=== PATIENT | male | born 1965 | race Caucasian/White ===

== ENCOUNTER → 2022-10-09 11:11 | Outpatient (BNVA) | payer OTHER, SELFPAY | PROVIDERS: PCP Internal Medicine; Visit Provider Nurse Practitioner Family | DX: Z13.89 Encounter for screening for other disorder (principal) ==

== ENCOUNTER 2022-11-20 12:29 | Outpatient (REF) | payer OTHER, SELFPAY ==
--- NOTE | ~2022-11-20 | MR_ITS ---
EXAMINATION: MR BRAIN WITHOUT CONTRAST CLINICAL INFORMATION: Tremor COMPARISON: None. TECHNIQUE: MRI of the brain was obtained using routine sequences without contrast. FINDINGS: Mildly motion degraded examination. No acute infarct. No acute intracranial hemorrhage or extra-axial fluid collection. Mild generalized parenchymal volume loss. Patchy T2 hyperintense foci in the subcortical and periventricular white matter are nonspecific but most suggestive of mild chronic microangiopathy. No mass lesion, mass effect, or herniation pattern. Normal intracranial arterial and dural venous sinus flow voids. Normal appearance of the midline structures. The orbits are grossly unremarkable. Trace ethmoid mucosal disease. The mastoid air cells are well aerated. Normal marrow signal. Asymmetric though nonpathologic size criteria right suboccipital lymph node. MR/MR head/brain wo con IMPRESSION: Mild generalized parenchymal volume loss and nonspecific white matter disease, likely mild chronic microangiopathy. No acute intracranial abnormality.
== END 2022-11-20 12:30 | disposition home or self-care (01) ==
LOC: HO.MRI 12:29
PROVIDERS: PCP Internal Medicine; Visit Provider Nurse Practitioner Family
DX: G47.50 Parasomnia, unspecified (principal); R20.2 Paresthesia of skin; R25.1 Tremor, unspecified; R26.9 Unspecified abnormalities of gait and mobility
CPT/HCPCS: 70551

== ENCOUNTER 2022-12-16 09:38 | Outpatient (REF) | payer OTHER, SELFPAY ==
--- NOTE | 2022-12-16 08:45 | EMG_ITS ---
Please see scanned EMG / Nerve Conduction Report. MTDD
== END 2022-12-16 09:39 | disposition home or self-care (01) ==
LOC: HO.NEURO 09:38
PROVIDERS: PCP Internal Medicine; Visit Provider Psychiatry & Neurology Neurology
DX: R20.2 Paresthesia of skin (principal); R53.83 Other fatigue; E11.9 Type 2 diabetes mellitus without complications
CPT/HCPCS: 95885; 95913

== ENCOUNTER → 2022-12-25 14:18 | Outpatient (BNVA) | payer OTHER, SELFPAY | PROVIDERS: PCP Internal Medicine; Visit Provider Nurse Practitioner Family ==

== ENCOUNTER 2023-01-06 10:14 | Outpatient (REF) | payer OTHER, SELFPAY ==
--- NOTE | 2023-01-06 | EMG_ITS ---
Please see scanned EMG / Nerve Conduction Report. MTDD
== END 2023-01-06 10:15 | disposition home or self-care (01) ==
LOC: HO.NEURO 10:14
PROVIDERS: PCP Internal Medicine; Visit Provider Psychiatry & Neurology Neurology
DX: R20.2 Paresthesia of skin (principal); R53.83 Other fatigue; E11.9 Type 2 diabetes mellitus without complications
CPT/HCPCS: 95885; 95911

== ENCOUNTER 2023-02-16 10:47 | Outpatient (AMB) | payer OTHER, SELFPAY ==
[2023-02-16 11:08] VITALS: BMI 38.4
--- NOTE | 2023-02-16 11:08 | A.OFFVIS_ITS ---
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 States his left is worse than his right. States numbness started about 1.5 years ago and has increase at night time. States he has not tried bracing or injections. Seen with Neurologist who did an EMG and ref to Orthopedics. Hx of pulmonary embolism, triple bi pass in February 2022, DM & PAH. 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 He is here with his He has numbness in the median nerve distribution bilaterally, L>R. His symptoms are intermittent, but daily, worse at night. He has weakness and drops objects. He has multiple medical comorbidities, including Diabetes and pulmonary arterial hypertension. he has a Hx of pulmonary embolism and triple bypass surgery in 02/2022 [facility] Medical History Diabetes mellitus DVT (deep venous thrombosis) HLD (hyperlipidemia) Intermittent claudication Low back pain Pulmonary emboli Tubular adenoma of colon Surgical History History of surgery Hx of colonoscopy Family History Mother Diabetes mellitus, type II Kidney failure Father Lung cancer Social History (Updated 02/16/23 @ 11:15 by VICENTE Wright) Household Members: Spouse Alcohol intake: former Patient Tobacco Use Status: Former Tobacco user Quit Date: 2020 Tobacco use type: Cigar Current occupational status: unemployed 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 Review of Systems Const All systems reviewed & are unremarkable except as noted in HPI and below Physical Exam Vital Signs: BMI result Body Mass Index 38.4 Const General: cooperative, healthy appearing and no acute distress Orientation/consciousness: patient oriented x3 HEENT Head: Yes normocephalic and Yes atraumatic Eyes EOM: EOMs intact bilaterally Resp Effort & Inspection: normal respiratory effort and able to speak in complete sentences Cardio Jugular venous distension: no JVD Skin General skin exam: turgor normal Rashes: no rashes Neuro General: patient oriented x3 Extrem Other: Evaluation of Bilateral Upper Extremity: The patient is alert, oriented, and in no acute distress Neuro: Dense numbness in the median nerve distribution bilaterally Normal sensation in the ulnar nerve distribution bilaterally. No thenar or intrinsic wasting Weak but firing APB muscle belly and good finger cross He has dense numbness in the superficial radial nerve distribution of the left hand, extending into the forearm. This is likely from the cardiac bypass performed using the radial nerve from the left wrist Vascular: Cap refill brisk ROM: He can make a fist and extend all his digits Skin: No lacerations or abrasions. General: No Ecchymosis. No Erythema or evidence of infection. Nerve Conduction study: Severe right carpal tunnel syndrome Moderately severe left carpal tunnel syndrome Left lateral ante-brachial and radial nerve cutaneous damage. Dr. Rubio 12/16/22 Psych Appearance: grossly normal Affect: normal affect Attitude: cooperative Assessment & Plan Assessment & Plan (1) Bilateral carpal tunnel syndrome: Code(s): G56.03 - Carpal tunnel syndrome, bilateral upper limbs (2) Diabetes mellitus: Comment: type 2 Code(s): E11.9 - Type 2 diabetes mellitus without complications Plan Assessment & Plan: 1. Left Carpal tunnel syndrome , moderate-severe With dense numbness, worse at night Weak APB muscle belly firing This is his most symptomatic complaint today I educated him about this condition I discussed treatment options The patient would like to proceed with surgery The plan is to take the patient to the operating room sometime in the next few weeks for the following procedures: 1. Left carpal tunnel release, under local All of the preoperative paperwork including the consent was filled out today. All the patient's questions were answered. The patient understands that they will be contacted by our surgery aid soon to schedule this procedure He denies asthma, kidney issues He is a Diabetic, his most recent HgA1c was 6.6% He has a Hx of pulmonary embolism and triple bypass surgery in 02/2022. He currently has pulmonary arterial hypertension and is on Eliquis. He will need cardiac clearance prior to surgery 2. Right Carpal tunnel syndrome, severe With dense numbness, worse at night We can discuss treatment when he has recovered from his left hand surgery Scribed for Tequila Vega MD by Jonathan Padron, hospital medical biller, on 02/16/23 at 11:30 AM, EST. Coding Level of Care Code New Pt Level 4 (52745) Diagnoses Bilateral carpal tunnel syndrome G56.03 Diabetes mellitus E11.9
== END 2023-02-16 11:45 | disposition home or self-care (01) ==
PROVIDERS: PCP Internal Medicine; Visit Provider Orthopaedic Surgery
DX: G56.03 Carpal tunnel syndrome, bilateral upper limbs (principal)
CPT/HCPCS: 99204

== ENCOUNTER → 2023-02-16 10:47 | Outpatient (BNVA) | payer OTHER, SELFPAY | PROVIDERS: PCP Internal Medicine; Visit Provider Orthopaedic Surgery ==

== ENCOUNTER 2023-04-05 10:00 | Day surgery (SDC) | payer OTHER, SELFPAY ==
[2023-04-05 11:55] VITALS: BP 107/58; PULSE 72; RESP 16; TEMP 36.5; O2SAT 97; BMI 38.4
--- NOTE | 2023-04-05 13:12 | MHC.SHP ---
Pre-Procedural Eval Section A Date of Service: 04/05/23 Section B Chief Complaint: Carpal tunnel syndrome, left upper limb Allergies: Allergies Allergy/AdvReac Type Severity Reaction Status Date / Time No Known Allergies Allergy Verified 04/02/23 10:25 Plan I have reviewed the history and physical and performed a pertinent physical examination on my patient. No changes have occurred unless specified. Time Spent With Patient Time: Total time managing care of this patient today ____ minutes.
--- NOTE | 2023-04-05 13:13 | W.PM.OPN ---
Operative Note Operative Note Date of Service: 04/05/23 Narrative: Preop diagnosis: 1. left Carpal tunnel syndrome Postop diagnosis: same Procedure: 1. left Carpal tunnel release Surgeon: Tequila Vega MD Anesthesia: local block using 1% lidocaine with epinephrine Findings: Thickened transverse carpal ligament. EBL: Less than 5 mL Specimens: None Complications: None Disposition: Brought to recovery room in stable condition Plan: Follow-up for 10-14 days for wound check and suture removal Indications: The patient is 57 years old, with left carpal tunnel syndrome that has been unresponsive to nonoperative management. The risks and benefits of operative treatment including but not limited to risk of damage to blood vessels, nerves, tendons, infection, persistent pain, persistent symptoms, or possible need for additional surgery were discussed with the patient and the patient wishes to proceed with surgery. Procedure: Once consent was obtained a local block was performed using a combination of 1% lidocaine with epinephrine. The patient was then brought back to the operating suite and placed on the operative table in supine position. The left upper extremity was prepped and draped in a standard surgical fashion. Once assured that we had a good block, a 2.0 cm longitudinal incision was made centered over the carpal tunnel. The incision was made through the skin to the subcutaneous tissues using a #15 blade. Dissection was made down to the level of the transverse carpal ligament with care being taken to protect the palmar cutaneous nerve. Once the transverse carpal ligament was clearly visualized, a longitudinal incision was made in the transverse carpal ligament 1st using a #15 blade, then using tenotomy scissors under direct visualization. Care was taken to look for and protect the motor branch of the median nerve when seen in this area. Once satisfied with our carpal tunnel release the wound was copiously irrigated with normal saline and hemostasis was obtained with a brief period of local pressure. The skin edges were reapproximated with some 5.0 nylon suture material and a sterile dressing was applied. The patient appears to have tolerated the procedure well and with no complications. All digits were well vascularized at the conclusion of the case.
[2023-04-05 13:49] VITALS: BP 125/63; PULSE 73; RESP 17; O2SAT 95
== END 2023-04-05 13:45 | disposition home or self-care (01) ==
PROVIDERS: PCP Internal Medicine; Visit Provider Orthopaedic Surgery
PROC: (CPT 64721; principal; 2023-04-05 11:30)
DX: G56.02 Carpal tunnel syndrome, left upper limb (principal); R20.0 Anesthesia of skin; R20.2 Paresthesia of skin; E11.9 Type 2 diabetes mellitus without complications; E78.5 Hyperlipidemia, unspecified; Z86.711 Personal history of pulmonary embolism; Z86.718 Personal history of other venous thrombosis and embolism; Z79.01 Long term (current) use of anticoagulants; Z87.891 Personal history of nicotine dependence
CPT/HCPCS: 64721; J0171

== ENCOUNTER → 2023-04-05 10:00 | Outpatient (BNV) | payer OTHER, SELFPAY | PROVIDERS: PCP Internal Medicine; Visit Provider Orthopaedic Surgery | DX: G56.02 Carpal tunnel syndrome, left upper limb (principal) | CPT/HCPCS: 64721 ==

== ENCOUNTER 2023-04-14 11:18 | Outpatient (AMB) | payer OTHER, SELFPAY ==
--- NOTE | 2023-04-14 11:34 | MHC.OFFVIS ---
Intake Vital Signs 04/14/23 11:36 Height 5 ft 6 in Weight 239 lb BMI 38.6 BP 118/78 Blood Pressure Location Rt brachial Position Sitting Pulse 75 Pulse Source Pulse Oximeter Intake Visit Reasons: 3 mo f/u for dizziness-Confirmed Intake Note: follow up 3 months Patient states My dizzy spells are still presents Allergies No Known Allergies Allergy (Verified 04/02/23 10:25) HPI HPI Comments History of Present Illness Details 57-yr-old male presents for f/u visit, accompanied by his . Pt was started on Sildenafil to tx his pulmonary HTN s/s/- so far has not noticed a significant improvement. Has f/u in May. He did have the left carpal tunnel repair last week. Plans to do the right in the future. Pt had fall onto his side at the end of the January, thought he twisted his left knee. X-rays did not show any fracture. He did see ortho, who did brace the left knee- as he had left lateral knee fluid. He also had a cortisone injection 03/26/23 w/ [facility]- which did not seem to help much. He continues to have SOB, poor endurance, and fatigue. He is having episodes of lightheadedness/dizziness, especially when bending over and getting back up. He is still having difficulty with BUE fine motor skills, paresthesias. feels he is having a bit more episodes of brain fog, difficulty concentrating. He is still having episodes of his feet feel stuck to the floor- tapping his leg helps. His right foot is still shuffling. He is taking more in his sleep. Not kicking, punching, or leaving the bed. He notes his sleep is more fragmented. He is feeling like someone is watching him from behind or seeing shadows. [facility] Medical History (Updated 04/14/23 @ 12:27 by DAVID Bhakta) Hay fever Tubular adenoma of colon Pulmonary emboli Low back pain HLD (hyperlipidemia) DVT (deep venous thrombosis) Diabetes mellitus Intermittent claudication Surgical History (Updated 04/14/23 @ 11:38 by IVAN Haddad) History of carpal tunnel release History of surgery Hx of colonoscopy Family History Mother Diabetes mellitus, type II Kidney failure Father Lung cancer Social History Household Members: Spouse Alcohol intake: former Patient Tobacco Use Status: Former Tobacco user Quit Date: 2020 Tobacco use type: Cigar Current occupational status: unemployed 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 RLE- no rest tremor noted today. Decreased foot taps. Slow to stand, decreased arm swing, short steps w/ low floor clearance, more so on right. 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 It is likely that mild axonal sensory-motor neuropathy is r/t diabetes and CV health issues, however will check labs for other common etiologies of neuropathy. F/u w/ pulmonology as scheduled, F/u w/ orthopedics as scheduled. Monitor hallucinations- ? if exacerbated by recent left CTR and left knee cortisone inj. Consider trial of dopaminergic tx in f/u- possibly this cleo help gait, freezing. Pt is advised to abstain from work through f/u her in 4 months, as pt would be at increased risk for injury and falls d/t his work requirements. Goals and Barriers Lab Results Last Value Most Recent Orders: Orders LUDWIN Reflex Titer and Pattern Today G62.9 - Polyneuropathy, unspecified, R20.2 - Paresthesia of skin Protein Electrophoresis 24HrUr Today G62.9 - Polyneuropathy, unspecified, R20.2 - Paresthesia of skin TSH reflex Free T4 Today G62.9 - Polyneuropathy, unspecified, R20.2 - Paresthesia of skin Vitamin B12 and Folate Today G62.9 - Polyneuropathy, unspecified, R20.2 - Paresthesia of skin Ferritin Today G62.9 - Polyneuropathy, unspecified, R20.2 - Paresthesia of skin Homocysteine Today G62.9 - Polyneuropathy, unspecified, R20.2 - Paresthesia of skin Erythrocyte Sedimentation Rate Today G62.9 - Polyneuropathy, unspecified, R20.2 - Paresthesia of skin CRP High Sensitivity Today G62.9 - Polyneuropathy, unspecified, R20.2 - Paresthesia of skin Protein Electrophoresis, Serum Today G62.9 - Polyneuropathy, unspecified, R20.2 - Paresthesia of skin Comprehensive Met. Panel Today G62.9 - Polyneuropathy, unspecified, R20.2 - Paresthesia of skin Complete Blood Count Auto Diff Today G62.9 - Polyneuropathy, unspecified, R20.2 - Paresthesia of skin Methylmalonic Acid Today G62.9 - Polyneuropathy, unspecified, R20.2 - Paresthesia of skin Coding Level of Care Code Est Pt Level 4 (99941) Diagnoses Peripheral neuropathy G62.9
[2023-04-14 11:36] VITALS: BP 118/78; PULSE 75; BMI 38.6
== END 2023-04-14 12:45 | disposition home or self-care (01) ==
PROVIDERS: PCP Internal Medicine; Visit Provider Nurse Practitioner Family
DX: G62.9 Polyneuropathy, unspecified (principal)
CPT/HCPCS: 99214

== ENCOUNTER → 2023-04-14 11:18 | Outpatient (BNVA) | payer OTHER, SELFPAY | PROVIDERS: PCP Internal Medicine; Visit Provider Nurse Practitioner Family ==

== ENCOUNTER 2023-04-21 11:51 | Outpatient (AMB) | payer OTHER, SELFPAY ==
--- NOTE | 2023-04-21 12:04 | MHC.OFFVIS ---
Intake Vital Signs 04/21/23 12:10 Height 5 ft 6 in Weight 239 lb BMI 38.6 Intake Visit Reasons: PO LT CTR 04/05/23AR Intake Note: Darryn 57 yr old male presents today for his P/O visit for his left CTR from 04/05/[address] Vega. States he still has numbness and tingling but he was made aware of this before surgery due to having constant numbness. Allergies No Known Allergies Allergy (Verified 04/21/23 12:14) HPI PO LT CTR 04/05/23AR HPI Details Darryn is a 57 year old right hand dominant man who presents S/P left carpal tunnel release, DOS: 04/05/23. He has known right carpal tunnel syndrome. In regards to his left hand he says he still has numbness in the median nerve distribution. He had dense numbness prior to surgery and is aware that his sensation may not return. He says he continues to have numbness in his hand at night, but he says he is no longer waking up with pain. He has numbness in the superficial radial nerve distribution of the left hand, extending into the forearm. This is likely from the cardiac bypass performed using the radial nerve from the left wrist He continues to have dense numbness in the right median nerve distribution. He says he is being kept out of work until July, by his Neurologist. He is being evaluated for Parkinson's disease. [facility] Medical History (Updated 04/14/23 @ 12:27 by DAVID Bhakta) Hay fever Tubular adenoma of colon Pulmonary emboli Low back pain HLD (hyperlipidemia) DVT (deep venous thrombosis) Diabetes mellitus Intermittent claudication Surgical History (Updated 04/14/23 @ 11:38 by IVAN Haddad) History of carpal tunnel release History of surgery Hx of colonoscopy Family History Mother Diabetes mellitus, type II Kidney failure Father Lung cancer Social History (Reviewed 04/21/23 @ 12:14 by Maya Robison [facility]) Household Members: Spouse Alcohol intake: former Patient Tobacco Use Status: Former Tobacco user Quit Date: 2020 Tobacco use type: Cigar Current occupational status: unemployed 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 Sutures removed and Steri-Strips applied He can make a fist and extend all his digits In regards to his left hand sensation: He continues to have dense numbness in the median nerve distribution Normal sensation in the ulnar nerve distribution Mild thenar wasting, no intrinsic wasting Weak but firing APB muscle belly and good finger cross He has dense numbness in the superficial radial nerve distribution of the left hand, extending into the forearm. This is likely from the cardiac bypass performed using the radial nerve from the left wrist In regards to the right hand: Dense numbness in the median nerve distribution of the right hand Normal sensation in the ulnar nerve distribution of the right hand Fairly significant thenar wasting, no intrinsic wasting Very weak but firing APB muscle belly and good finger cross Cap refill is brisk Nerve Conduction study: Severe right carpal tunnel syndrome Moderately severe left carpal tunnel syndrome Left lateral ante-brachial and radial nerve cutaneous damage. Dr. Rubio 12/16/22 Psych Appearance: grossly normal Affect: normal affect Attitude: cooperative Assessment & Plan Assessment & Plan (1) Bilateral carpal tunnel syndrome: Code(s): G56.03 - Carpal tunnel syndrome, bilateral upper limbs (2) Diabetes mellitus: Comment: type 2 Code(s): E11.9 - Type 2 diabetes mellitus without complications Plan Assessment & Plan: 1. Left Carpal tunnel syndrome, S/P release DOS: 04/05/23 Pre-operatively with dense numbness, worse at night Now with dense numbness slightly improved nighttime symptoms Weak APB muscle belly firing, mild thenar wasting The patient appears to be doing well post-operatively I educated him about the post-operative course I explained the signs and symptoms of infection, if the patient develops any new or worsening erythema, drainage, pain, or warmth they should contact the clinic or attend the ED. I explained it can take up to 9 months post-operatively for his sensation to show any improvement I discussed activity modifications, he is to lift nothing heavier than a cellphone for the next two weeks He will perform gentle ROM exercises at home He should avoid any underwater activities for the next 5 days He should gently massage about the incision site to reduce the risk of hypersensitivity 2. Right Carpal tunnel syndrome, severe With dense numbness, worse at night Weak APB muscle belly firing Significant thenar wasting I educated him about this condition I discussed operative and non-operative treatment options The patient would like to proceed with surgery The risks and benefits of operative treatment were discussed with the patient and the patient wishes to proceed with surgery. These risks include, but are not limited to risk of damage to blood vessels, nerves, tendons, infection, recurrence, incomplete relief of preoperative symptoms, persistent pain, possible need for further surgery and the risks associated with regional blocks and anesthesia. The plan is to take the patient to the operating room sometime in the next few weeks for the following procedures: 1. Right carpal tunnel release, under local All of the preoperative paperwork including the consent was filled out today. All the patient's questions were answered. The patient understands that they will be contacted by our soda dry house operator soon to schedule this procedure He denies Diabetes, blood thinners, asthma, kidney issues He has a Hx of pulmonary embolism and triple bypass surgery in 02/2022. He currently has pulmonary arterial hypertension and is on Eliquis. He obtained cardiac clearance prior to his left carpal tunnel release and will not need new clearance Scribed for Tequila Vega MD by Jonathan Padron, medical device assembler, on 04/21/23 at 12:25 PM, EST. Coding Level of Care Code Global (13238) Diagnoses Bilateral carpal tunnel syndrome G56.03 Diabetes mellitus E11.9
[2023-04-21 12:10] VITALS: BMI 38.6
== END 2023-04-21 12:42 | disposition home or self-care (01) ==
PROVIDERS: PCP Internal Medicine; Visit Provider Orthopaedic Surgery
DX: G56.03 Carpal tunnel syndrome, bilateral upper limbs (principal); E11.9 Type 2 diabetes mellitus without complications
CPT/HCPCS: 99024

== ENCOUNTER → 2023-04-21 11:51 | Outpatient (BNVA) | payer OTHER, SELFPAY | PROVIDERS: PCP Internal Medicine; Visit Provider Orthopaedic Surgery ==

== ENCOUNTER 2023-04-26 09:59 | Day surgery (SDC) | payer OTHER, SELFPAY ==
[2023-04-26 10:54] VITALS: BP 140/68; PULSE 73; RESP 18; TEMP 36.8; O2SAT 95; BMI 38.6
--- NOTE | 2023-04-26 12:46 | MHC.SHP ---
Pre-Procedural Eval Section A Date of Service: 04/26/23 The patient is an INPATIENT: No Changes since office visit: No Cold of Flu in the past 2 weeks, No New Medical Problems, No Changes in Medication and No Patient answered all questions The History & Physical has been completed within 30 days and I have reviewed it.: Yes Section B Chief Complaint: Carpal tunnel syndrome, right upper limb Allergies: Allergies Allergy/AdvReac Type Severity Reaction Status Date / Time No Known Allergies Allergy Verified 04/21/23 12:14 Plan I have reviewed the history and physical and performed a pertinent physical examination on my patient. No changes have occurred unless specified. Time Spent With Patient Time: Total time managing care of this patient today ____ minutes.
--- NOTE | 2023-04-26 12:46 | W.PM.OPN ---
Operative Note Operative Note Date of Service: 04/26/23 Narrative: Preop diagnosis: 1. right Carpal tunnel syndrome Postop diagnosis: same Procedure: 1. right Carpal tunnel release Surgeon: Tequila Vega MD Anesthesia: local block using 1% lidocaine with epinephrine Findings: Thickened transverse carpal ligament. EBL: Less than 5 mL Specimens: None Complications: None Disposition: Brought to recovery room in stable condition Plan: Follow-up for 10-14 days for wound check and suture removal Indications: The patient is 57 years old, with right carpal tunnel syndrome that has been unresponsive to nonoperative management. The risks and benefits of operative treatment including but not limited to risk of damage to blood vessels, nerves, tendons, infection, persistent pain, persistent symptoms, or possible need for additional surgery were discussed with the patient and the patient wishes to proceed with surgery. Procedure: Once consent was obtained a local block was performed using a combination of 1% lidocaine with epinephrine. The patient was then brought back to the operating suite and placed on the operative table in supine position. The right upper extremity was prepped and draped in a standard surgical fashion. Once assured that we had a good block, a 2.0 cm longitudinal incision was made centered over the carpal tunnel. The incision was made through the skin to the subcutaneous tissues using a #15 blade. Dissection was made down to the level of the transverse carpal ligament with care being taken to protect the palmar cutaneous nerve. Once the transverse carpal ligament was clearly visualized, a longitudinal incision was made in the transverse carpal ligament 1st using a #15 blade, then using tenotomy scissors under direct visualization. Care was taken to look for and protect the motor branch of the median nerve when seen in this area. Once satisfied with our carpal tunnel release the wound was copiously irrigated with normal saline and hemostasis was obtained with a brief period of local pressure. The skin edges were reapproximated with some 5.0 nylon suture material and a sterile dressing was applied. The patient appears to have tolerated the procedure well and with no complications. All digits were well vascularized at the conclusion of the case.
[2023-04-26 14:08] VITALS: BP 105/63; PULSE 74; RESP 18; O2SAT 95
== END 2023-04-26 14:09 | disposition home or self-care (01) ==
PROVIDERS: PCP Internal Medicine; Visit Provider Orthopaedic Surgery
PROC: (CPT 64721; principal; 2023-04-26 11:20)
DX: G56.01 Carpal tunnel syndrome, right upper limb (principal); R20.0 Anesthesia of skin; R20.2 Paresthesia of skin; E11.9 Type 2 diabetes mellitus without complications; I27.0 Primary pulmonary hypertension; E78.5 Hyperlipidemia, unspecified; Z87.891 Personal history of nicotine dependence; J30.1 Allergic rhinitis due to pollen; Z86.718 Personal history of other venous thrombosis and embolism; Z86.711 Personal history of pulmonary embolism; Z79.01 Long term (current) use of anticoagulants; Z79.84 Long term (current) use of oral hypoglycemic drugs; Z98.890 Other specified postprocedural states
CPT/HCPCS: 64721; J0171

== ENCOUNTER → 2023-04-26 09:59 | Outpatient (BNV) | payer OTHER, SELFPAY | PROVIDERS: PCP Internal Medicine; Visit Provider Orthopaedic Surgery | DX: G56.01 Carpal tunnel syndrome, right upper limb (principal) | CPT/HCPCS: 64721 ==

== ENCOUNTER 2023-05-11 12:33 | Outpatient (AMB) | payer OTHER, SELFPAY ==
--- NOTE | 2023-05-11 12:46 | MHC.OFFVIS ---
Intake Vital Signs 05/11/23 12:54 Height 5 ft 6 in Weight 239 lb BMI 38.6 Intake Visit Reasons: PO-Rt CTR 04/26 Intake Note: Darryn 57 yr old male presents today for his P/O visit for his post op visit for his Right CTR 04/26/23. States numbness has improved slightly. Sutures removed and steri strips applied. Allergies No Known Allergies Allergy (Verified 05/11/23 12:54) HPI PO-Rt CTR 04/26 HPI Details Darryn is a 57 year old right hand dominant man who presents S/P right carpal tunnel release, DOS: 04/26/23. In regards to his right hand he says he still has numbness in the median nerve distribution, though this has improved slightly. He had dense numbness prior to surgery and is aware that his sensation may not return. He says he continues to have numbness in his hand at night, but he says he is no longer waking up with pain. He continues to have dense numbness in the left median nerve distribution, and numbness in the superficial radial nerve distribution of the left hand, extending into the forearm. This is likely from the cardiac bypass performed using the radial nerve from the left wrist He says he is being kept out of work until July, by his Neurologist. He is being evaluated for Parkinson's disease. [facility] Medical History (Updated 04/14/23 @ 12:27 by DAVID Bhakta) Hay fever Tubular adenoma of colon Pulmonary emboli Low back pain HLD (hyperlipidemia) DVT (deep venous thrombosis) Diabetes mellitus Intermittent claudication Surgical History (Updated 04/14/23 @ 11:38 by IVAN Haddad) History of carpal tunnel release History of surgery Hx of colonoscopy Family History Mother Diabetes mellitus, type II Kidney failure Father Lung cancer Social History Household Members: Spouse Alcohol intake: former Patient Tobacco Use Status: Former Tobacco user Quit Date: 2020 Tobacco use type: Cigar Current occupational status: unemployed 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 Sutures removed and Steri-Strips applied He can make a fist and extend all his digits In regards to his right hand sensation: He continues to have dense numbness in the median nerve distribution Normal sensation in the ulnar nerve distribution Fairly significant thenar wasting, no intrinsic wasting Very weak but firing APB muscle belly and good finger cross In regards to the left hand: Dense numbness in the median nerve distribution of the right hand Normal sensation in the ulnar nerve distribution of the right hand Mild thenar wasting, no intrinsic wasting Weak but firing APB muscle belly and good finger cross He has dense numbness in the superficial radial nerve distribution of the left hand, extending into the forearm. This is likely from the cardiac bypass performed using the radial nerve from the left wrist Cap refill is brisk Nerve Conduction study: Severe right carpal tunnel syndrome Moderately severe left carpal tunnel syndrome Left lateral ante-brachial and radial nerve cutaneous damage. Dr. Rubio 12/16/22 Psych Appearance: grossly normal Affect: normal affect Attitude: cooperative Assessment & Plan Assessment & Plan (1) Bilateral carpal tunnel syndrome: Code(s): G56.03 - Carpal tunnel syndrome, bilateral upper limbs (2) Diabetes mellitus: Comment: type 2 Code(s): E11.9 - Type 2 diabetes mellitus without complications Plan Assessment & Plan: 1. Right Carpal tunnel syndrome, severe Pre-operatively with dense numbness, worse at night Still with dense numbness post-operatively Weak APB muscle belly firing Significant thenar wasting The patient appears to be doing well post-operatively I educated him about the post-operative course I explained the signs and symptoms of infection, if the patient develops any new or worsening erythema, drainage, pain, or warmth they should contact the clinic or attend the ED. I discussed activity modifications, he is to lift nothing heavier than a cellphone for the next two weeks He will perform gentle ROM exercises at home He should avoid any underwater activities for the next 5 days He should gently massage about the incision site to reduce the risk of hypersensitivity He can follow up prn 2. Left Carpal tunnel syndrome, S/P release DOS: 04/05/23 Pre-operatively with dense numbness, worse at night Now with dense numbness slightly improved nighttime symptoms Weak APB muscle belly firing, mild thenar wasting Scribed for Tequila Vega MD by Jonathan Padron, medical unit secretary, on 05/11/23 at 1:25 PM, EST. Coding Level of Care Code Global (22385) Diagnoses Bilateral carpal tunnel syndrome G56.03 Diabetes mellitus E11.9
[2023-05-11 12:54] VITALS: BMI 38.6
== END 2023-05-11 13:30 | disposition home or self-care (01) ==
PROVIDERS: PCP Internal Medicine; Visit Provider Orthopaedic Surgery
DX: G56.03 Carpal tunnel syndrome, bilateral upper limbs (principal); E11.9 Type 2 diabetes mellitus without complications
CPT/HCPCS: 99024

== ENCOUNTER → 2023-05-11 12:33 | Outpatient (BNVA) | payer OTHER, SELFPAY | PROVIDERS: PCP Internal Medicine; Visit Provider Orthopaedic Surgery ==

== ENCOUNTER 2023-07-01 08:45 | Outpatient (REF) | payer OTHER, SELFPAY ==
[2023-07-01 09:21] LABS: MANUAL DIFF FLAG NO
[2023-07-01 10:02] LABS: Basophils Percent Auto 0.5 % (0-2); Eosinophils Absolute Auto 0.3 X10*3/uL (0.0-0.4); Eosinophils Percent Auto 3.8 % (0-4); Hematocrit 50.3 % (42.0-52.0); Imm Gran Abs Auto 0.03 X10*3/uL (0.00-0.03); Imm Gran Pct Auto 0.4 % (0.0-0.4); Lymphocytes Absolute Auto 2.2 X10*3/uL (1.2-4.9); Mean Corpuscular HGB Conc 33.8 g/dl (31.0-36.0); Mean Corpuscular Hemoglobin 32.3 pg (27.0-33.0); Mean Corpuscular Volume 95.6 fL (80.0-98.0); Mean Platelet Volume 11.5 fL (9.4-12.4); Monocytes Absolute Auto 0.8 X10*3/uL (0.1-1.2); Monocytes Percent Auto 9.7 % (2-11); Neutrophils Absolute Auto 4.6 x10*3/uL (2.0-8.3); Neutrophils Percent Auto 57.6 % (45-73); Platelet Count 249 X10*3/uL (160-400); Red Blood Count 5.26 X10*6/uL (4.60-5.80); Red Cell Distribution Width 13.2 % (11.0-16.0); White Blood Count 7.9 X10*3/uL (4.8-10.8)
[2023-07-01 10:58] LABS: Erythrocyte Sedimentation Rate 3 MM/HR (0-15)
[2023-07-01 11:04] LABS: Alanine Aminotransferase 23 U/L (0-40); Albumin Level 4.5 g/dL (3.5-5.0); Alkaline Phosphatase 62 U/L (39-117); Anion Gap 15 (12-20); Aspartate Amino Transferase 17 U/L (5-37); Bilirubin Total 0.8 mg/dL (0.0-1.0); Blood Urea Nitrogen 21 mg/dL (9-16); Calcium 10.5 mg/dL (8.4-10.2); Carbon Dioxide 28 mmol/L (22-29); Chloride 104 mmol/L (96-108); Estimated Glomerular Filt Rate > 60; Glucose Random 125 mg/dL (60-115); Potassium 5.4 mmol/L (3.3-5.1); Sodium 142 mmol/L (135-145); Total Protein 7.7 g/dL (6.5-8.0)
[2023-07-01 11:08] LABS: Ferritin 277 ng/mL (20-250); TSH reflex Free T4 1.76 uIU/mL (0.32-4.0)
[2023-07-01 11:09] LABS: Folate 13.8 ng/mL (> or = 4.0); Vitamin B12 1810 pg/mL (200-900)
[2023-07-05 13:38] LABS: CRP High Sensitivity 1.2 mg/L
[2023-07-05 17:27] LABS: Homocysteine 10.3 umol/L (<11.4)
[2023-07-05 21:18] LABS: Prot Elec - Albumin 4.6 g/dL (3.8-4.8); Prot Elec - Alpha1 0.3 g/dL (0.2-0.3); Prot Elec - Beta 1 0.4 g/dL (0.4-0.6); Prot Elec - Beta 2 0.4 g/dL (0.2-0.5); Prot Elec - Total Protein 7.8 g/dL (6.1-8.1)
[2023-07-06 20:59] LABS: Methylmalonic Acid 175 nmol/L (87-318)
[2023-07-08 15:04] LABS: Anti Nuclear Antibody Screen NEGATIVE (NEGATIVE)
== END 2023-07-01 08:46 | disposition home or self-care (01) ==
LOC: HO.LAB 08:45
PROVIDERS: PCP Internal Medicine; Visit Provider Nurse Practitioner Family
DX: R20.2 Paresthesia of skin (principal); G62.9 Polyneuropathy, unspecified
CPT/HCPCS: 36415; 80053; 82607; 82728; 82746; 83090; 83921; 84165; 84443; 85025; 85652; 86038; 86141

== ENCOUNTER 2023-07-07 08:27 | Outpatient (REF) | payer OTHER, SELFPAY ==
[2023-07-07 09:35] LABS: Anion Gap 13 (12-20); Blood Urea Nitrogen 16 mg/dL (9-16); Calcium 9.8 mg/dL (8.4-10.2); Carbon Dioxide 27 mmol/L (22-29); Chloride 102 mmol/L (96-108); Estimated Glomerular Filt Rate > 60; Glucose Random 110 mg/dL (60-115); Potassium 4.2 mmol/L (3.3-5.1); Sodium 138 mmol/L (135-145)
[2023-07-12 11:48] LABS: Creatinine, 24Hr Urine 1.76 g/24 h (0.50-2.15); PEU-PROT/CRE Ratio mg/mg 0.064 (<0.100); PEU24-Albumin Urine 100 %; PEU24-Alpha 1 Globulin 0 %; PEU24-Alpha 2 Globulin 0 %; PEU24-Beta Globulin 0 %; PEU24-Gamma Globulin 0 %; Total Protein 24Hr Urine 113 mg/24 h (<150); Total Protein/Creat Ratio 24h 64 mg/g creat (<100)
== END 2023-07-07 08:28 | disposition home or self-care (01) ==
LOC: HO.LAB 08:27
PROVIDERS: Visit Provider Nurse Practitioner Family
DX: G62.9 Polyneuropathy, unspecified (principal); E87.5 Hyperkalemia; R20.2 Paresthesia of skin
CPT/HCPCS: 36415; 80048; 82570; 84156; 84166

== ENCOUNTER 2023-08-13 11:18 | Outpatient (AMB) | payer OTHER, SELFPAY ==
--- NOTE | 2023-08-13 11:29 | MHC.OFFVIS ---
Intake Vital Signs 08/13/23 11:34 Height 5 ft 6 in Weight 243 lb BMI 39.2 BP 112/74 Blood Pressure Location Rt brachial Position Sitting Pulse 77 Pulse Source Pulse Oximeter Pulse Oximetry (%) 97 Oxygen Delivery Method Room Air Intake Visit Reasons: f/u for dizziness-Confirmed Intake Note: Patient presents for follow up dizziness. it's gotten worst Allergies No Known Allergies Allergy (Verified 08/13/23 11:35) Medication List - Last Reconciled 08/13/23 by DAVID Bhakta ambrisentan 10 mg PO DAILY apixaban (Eliquis) 5 mg PO BID aspirin 81 mg PO DAILY atorvastatin 80 mg PO DAILY blood sugar diagnostic (Contour Next Test Strips) As directed twice a day blood-glucose meter (Contour Next Meter) As directed bupropion HCl 300 mg PO DAILY carbidopa-levodopa 25-100 mg 1 tab PO BID 30 days dulaglutide (Trulicity) mg subcut empagliflozin (Jardiance) 25 mg PO DAILY furosemide 20 mg PO Q OTHER DAY gabapentin 600 mg orally; 1 in AM, 2 lunch, 2night glucagon (Glucagon Emergency Kit) 1 mg IM ONCE PRN lisinopril 2.5 mg PO DAILY mecobalamin (vitamin B12) 1,000 mcg sublingual DAILY metformin 1,000 mg PO BID metoprolol succinate ER 100 mg PO DAILY multivitamin 1 tab PO DAILY HPI HPI Comments History of Present Illness Details 57-year-old male presents for f/u visit. Pt denies any significant interval medical history changes. Patient reports on he had ortho consult with ZHOU Mitchell, r/t undergoing knee replacements. Per patient, Dr. Tucker question if pt has Parkinson's d/t marked BLE rigidity. Patient is tentatively scheduled for left knee replacement on October 03, however patient states ortho need to speak to us prior to this. He still has chest heaviness, SOB, and some orthostatic dizziness- like not right in space and room spinning. All of a sudden, he has episodes where his jaw/mouth gets stuck open- but no jaw clicking/popping. He has been stuttering more. feels he knows what he wants to say it is taking longer for him to process what seem to him as stuttering. also finding him driftng off into space quite often and have to touch him to get his attention He has noticed increased Right hand and RLE tremor- rest. Finds himself pill rolling his right fingers. Recently his toothbrush flew/jerked out of his right hand, this has happened w/ his phone as well. He is feeling RUE heaviness, pain, especially with lifting his arms- worse in the evening. Wakes up tired- feels like his legs are tired. Mainly sleeps from 10pm to 2-2:30 am. He denies parasomnias. His feet are always cold. Bottoms of feet hurt all of the time. He feels more confused- more STM lapses, like someone is standing behind him, or the cat statue in the house is moving. Still shuffling and sticking to the ground. Continues to have difficulty door thresholds. He is still falling. Last fall was last week, missed the steps to get out of bed. Bed is too high. Prone to falling when he turns quickly. He is being followed closely by: Solis oLpez [facility]'s: Currently managing Pulmonary HTN w/ ambrisentan and prn Lasix 20mg- may take up to 6 months before he can see full benefit. Jayant Rivera, [facility] therapist, who recently recommended that Dr Nolasco add/adjust to the Bupropion. [facility] Medical History (Updated 08/15/23 @ 18:03 by DAVID Bhakta) Hay fever Tubular adenoma of colon Pulmonary emboli Low back pain HLD (hyperlipidemia) DVT (deep venous thrombosis) Diabetes mellitus Intermittent claudication Surgical History History of carpal tunnel release History of surgery Hx of colonoscopy Family History Mother Diabetes mellitus, type II Kidney failure Father Lung cancer Social History Household Members: Spouse Alcohol intake: former Patient Tobacco Use Status: Former Tobacco user Quit Date: 2020 Tobacco use type: Cigar Current occupational status: unemployed 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 BUE LEONA- poor, worse on right. RLE- no rest tremor noted today. BUE tone, R > L BLE knee braced, BLE marked tone Foot taps- BLE bradykinesia- more so on right Slow to stand, decreased arm swing, short steps, marked varus w/ knees braced w/ low floor clearance, more so on right. Pleasant affect Results Reviewed Results Reviewed: 11/06/22, PET DATscan brain: normal w/ bilateral activity seen in the caudate and putamen . 11/20/22, MR/MR head/brain wo con IMPRESSION: Mild generalized parenchymal volume loss and nonspecific white matter disease, likely mild chronic microangiopathy. No acute intracranial abnormality. 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 EMG of left L4-S1 innervated muscles c/w mild chronic neuropathic changes of neuropathy. Last Resulted Lab Tests 07/01/23 07/07/23 08:41 Potassium 5.4 4.2 Chloride 102 102 Carbon Dioxide 27 27 Anion Gap 13 13 BUN 16 16 Creatinine 1.12 1.1 Random Glucose 110 101 Calcium 9.8 9.8 WBC 7.9 RBC 5.26 Hgb 17.0 Hct 50.3 ESR 3 Sodium 142 Potassium 5.4 H Chloride 104 Carbon Dioxide 28 Anion Gap 15 BUN Creatinine 1.15 Random Glucose 125 H Calcium 10.5 H Ferritin 277 H 07/01/23 07/01/23 09:18 09:18 Total Bilirubin 0.8 AST 17 ALT 23 Alkaline Phosphatase 62 C-React Prot High Sens 1.2 Total Protein 7.7 Total Protein (PEP) 7.8 Albumin 4.5 Albumin (PEP) 4.6 Kztmq-0-Dasrzsuax 0.3 Japvs-0-Wtnajkilq 1.0 H Qyyt-7-Sxcwsxcw 0.4 Tdpf-0-Gsnlklia 0.4 Gamma Globulins 1.0 PEP Interpretation SEE NOTE- Isolated elevation of alpha-2 globulins. Suggestive of acute inflammation. Vitamin B12 1810 H Methylmalonic Acid 175 Folate 13.8 Homocysteine 10.3 TSH 1.76 07/07/23 08:00 Ur Creatinine 24 Hour 1.76 Ur Albumin 24 Hour 100 Ur Total Protein 24 Hr 113 Ur Total Protein Interp SEE NOTE- normal pattern Protein/Creat Ratio 24h 64 Ur Protein/Creat Ratio mg/mg 0.064 U Bicvb-4-Dxdfmapt 0 U Ghvww-6-Mxxddlot 0 U Beta Globulin 0 LUDWIN Screen negative Assessment & Plan Assessment & Plan (1) Movement disorder: Comment: Asymmetric tremor, rigidity, bradykinesia, gait changes, mild visual hallucinations. 2022-carlee scan. 2022 brain MRI mild chronic microangiopathic changes. Code(s): G25.9 - Extrapyramidal and movement disorder, unspecified (2) Peripheral neuropathy: Code(s): G62.9 - Polyneuropathy, unspecified Plan Reviewed interval labs: Notable for very mildly elevated serum protein electrophoresis finding of Lrrtt-9-Trrxcycrc 1.0 H, with normal urine protein electrophoresis. Likely this isolated elevated alpha 2 globulin levels is related to patient's history of diabetes. Patient continues to have asymmetric tremor, bradykinesia, rigidity, altered gait, freezing, and visual hallucinations. Patient has no known risk factors for secondary parkinsonism. Patient does have BUE carpal tunnel syndrome and BLE mild axonal sensory-motor peripheral neuropathy and LLE L4-S1 mild chronic neuropathic changes, however the mild degree of these do not fully explain explain patient's current degree movement disorder symptoms. Recent carlee scan was did not show evidence of a dopaminergic neurodegenerative process, however we can see false negative carlee scans and thus does not rule out the possibility of an early movement disorder such as Parkinson's. At this point, I have advised patient to trial carbidopa levodopa b.i.d., to assess if the above symptoms are not levodopa responsive. Reviewed common side effects including but not limited to GI upset, nausea, orthostatic lightheadedness. Reviewed importance of standing slowly, turning slowly, and minimizing risk for postural instability. I have encouraged patient to consider trying Parkinson's specific exercises. Could consider a referral to a Parkinson's big program, however would need to discuss with ortho as he will likely need physical therapy before and after the upcoming left total knee replacement. Pt is advised to abstain from work through f/u here, as pt continues to be at increased risk for injury and falls d/t his work requirements. This note is constructed using voice recognition software. While every effort has been made to ensure accuracy, spindle plumber errors may have been included. ? Medications: New carbidopa-levodopa 25-100 mg take w/ a cracker 30 minutes before breakfast and dinner, 1 tab PO BID 30 days 60 tabs 3RF Coding Level of Care Code Est Pt Level 4 (36962) Diagnoses Movement disorder G25.9 Peripheral neuropathy G62.9
[2023-08-13 11:34] VITALS: BP 112/74; PULSE 77; O2SAT 97; BMI 39.2
== END 2023-08-13 12:57 | disposition home or self-care (01) ==
PROVIDERS: PCP Internal Medicine; Visit Provider Nurse Practitioner Family
DX: G25.9 Extrapyramidal and movement disorder, unspecified (principal); G62.9 Polyneuropathy, unspecified
CPT/HCPCS: 99214

== ENCOUNTER → 2023-08-13 11:18 | Outpatient (BNVA) | payer OTHER, SELFPAY | PROVIDERS: PCP Internal Medicine; Visit Provider Nurse Practitioner Family | DX: R20.2 Paresthesia of skin (principal); G62.9 Polyneuropathy, unspecified ==

== ENCOUNTER 2023-09-15 07:36 | Outpatient (AMB) | payer OTHER, SELFPAY ==
--- NOTE | 2023-09-15 07:37 | MHC.OFFVIS ---
Intake Intake Visit Reasons: f/u per Dirk Pacheco# [phone] - CONF Intake Note: Patient presents for follow up. Allergies No Known Allergies Allergy (Verified 09/15/23 07:37) Medication List - Last Reconciled 09/15/23 by DAVID Bhakta ambrisentan 10 mg PO DAILY apixaban (Eliquis) 5 mg PO BID aspirin 81 mg PO DAILY atorvastatin 80 mg PO DAILY blood sugar diagnostic (Contour Next Test Strips) As directed twice a day blood-glucose meter (Contour Next Meter) As directed bupropion HCl 300 mg PO DAILY carbidopa-levodopa 25-100 mg 1 tab PO BID 30 days dulaglutide (Trulicity) mg subcut empagliflozin (Jardiance) 25 mg PO DAILY furosemide 20 mg PO Q OTHER DAY gabapentin 600 mg orally; 1 in AM, 2 lunch, 2night glucagon (Glucagon Emergency Kit) 1 mg IM ONCE PRN lisinopril 2.5 mg PO DAILY mecobalamin (vitamin B12) 1,000 mcg sublingual DAILY metformin 1,000 mg PO BID metoprolol succinate ER 100 mg PO DAILY multivitamin 1 tab PO DAILY HPI HPI Comments History of Present Illness Details 57-yr-old male presents for f/u televideo visit via [employer]. Pt is accompanied by his . Pt denies any significant interval medical changes. After last visit, I did speak with Dr Tucker, ortho from [facility], regarding levodopa trial prior to undergoing knee replacement. Dr. Tucker advised to hold starting formal physical therapy until after the knee replacement, as patient may need prolonged physical therapy thereafter. Patient has started CD-LD 25-100mg- 1 tab bid- at 5am and 5pm. He has noticed some improvement in his movement symptoms, but effect can wear off before the next dose. Was having GI upset initially, but this has resolved. No hallucinations. No dyskinesias. Since starting CD-LD- he has not had any increase in lightheadedness. Generally, he does better in the am and worse in the evening. Tremor is less, still pill rolling. notes tremor is worse when nervous or anxious. He may have some episodes of jerking. He is still having issues crossing thresholds, now can also have some depth perception difficulties when stepping down. He feels he is moving better. His legs can feel heavy, more so on the left. Can have some stiffness/arthritic pain in the left metatarsal region. He did have an interval fall- was walking out of the bathroom, and when he turned, he just fell down- maybe he turned too quick but is trying not to. was not lightheaded. He is still shuffling, but he is trying to be more conscious to nut picker his feet. His right toes now may twitch - especially when tired. notes that he has had cognitive difficulties- for example- , last night while watching the news, he went to say something, but then just stopped- he states the words were there, but were not coming out [facility] Medical History (Updated 08/15/23 @ 18:03 by DAVID Bhakta) Hay fever Tubular adenoma of colon Pulmonary emboli Low back pain HLD (hyperlipidemia) DVT (deep venous thrombosis) Diabetes mellitus Intermittent claudication Surgical History History of carpal tunnel release History of surgery Hx of colonoscopy Family History Mother Diabetes mellitus, type II Kidney failure Father Lung cancer Social History Household Members: Spouse Alcohol intake: former Patient Tobacco Use Status: Former Tobacco user Quit Date: 2020 Tobacco use type: Cigar Current occupational status: unemployed 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 Physical Exam Const General: cooperative and no acute distress Orientation/consciousness: patient oriented x3 Resp Effort & Inspection: normal respiratory effort and able to speak in complete sentences Neuro Other: Mild decreased facial expression General: patient oriented x3 Cognition (Neuro): normal cognition Psych Appearance: grossly normal Mental Status: mental status grossly normal Speech and movement: Normal speech and movement present Affect: normal affect Attitude: cooperative Assessment & Plan Assessment & Plan (1) Movement disorder: Comment: Asymmetric tremor, rigidity, bradykinesia, gait changes, mild visual hallucinations. 2022-maxi scan. 2022 brain MRI mild chronic microangiopathic changes. Code(s): G25.9 - Extrapyramidal and movement disorder, unspecified (2) Hyperkalemia: Code(s): E87.5 - Hyperkalemia (3) Peripheral neuropathy: Code(s): G62.9 - Polyneuropathy, unspecified Plan Patient has had a modest positive effect from starting levodopa tx, which does support a movement disorder or dopaminergic neurodegenerative process, however in the setting of a negative DaTSCAN, advised that we will need to monitor for progression, stabilization, or regression of symptoms. Patient advised to increase the CD-LD 25-100mg from 1 tab b.i.d. to 1 tab t.i.d.- in hopes this further reduces his movement symptoms and allow for increased mobility. At this point, patient may proceed with scheduling his total knee replacement. Follow-up with Dr. Tucker scheduled. ? Continue to monitor, pt's asymmetric tremor, bradykinesia, rigidity, altered gait, freezing, and visual hallucinations in the setting of BUE carpal tunnel syndrome and BLE mild axonal sensory-motor peripheral neuropathy and LLE L4-S1 mild chronic neuropathic changes. And negative Maxi scan w/o no known risk factors for secondary parkinsonism. ? Pt is advised to abstain from work through f/u here, as pt continues to be at increased risk for injury and falls d/t his work requirements. Follow-up in 4-6 weeks or sooner as needed. ? This note is constructed using voice recognition software. While every effort has been made to ensure accuracy, director child abuse therapy errors may have been included. Medications: Changed From carbidopa-levodopa 25-100 mg take w/ a cracker 30 minutes before breakfast and dinner, 1 tab PO BID 30 days 60 tabs 3RF To carbidopa-levodopa 25-100 mg take w/ a cracker 1 tab PO TID 90 tabs 3RF 30 days Telehealth Telehealth Location of provider rendering services: practice address Location of patient: address on file Patient Identification confirmed using: Name, : Yes Telehealth method: video Patient verbally consented to treatment: Yes Patient verbally consented to billing insurance company: Yes Patient informed of any privacy concerns related to visit: Yes Minutes spent on Phone/Video with Pt.: 30 Coding Level of Care Code Tele Est Pt Level 4 (24626) Diagnoses Movement disorder G25.9 Hyperkalemia E87.5 Peripheral neuropathy G62.9
== END 2023-09-15 08:30 | disposition home or self-care (01) ==
LOC: HO.HSMS 07:36
PROVIDERS: PCP Internal Medicine; Visit Provider Nurse Practitioner Family
DX: G25.9 Extrapyramidal and movement disorder, unspecified (principal); E87.5 Hyperkalemia; G62.9 Polyneuropathy, unspecified
CPT/HCPCS: 99214

== ENCOUNTER → 2023-09-15 07:36 | Outpatient (BNVA) | payer OTHER, SELFPAY | PROVIDERS: PCP Internal Medicine; Visit Provider Nurse Practitioner Family ==

== ENCOUNTER 2023-10-19 07:40 | Outpatient (AMB) | payer OTHER, SELFPAY ==
--- NOTE | 2023-10-19 07:48 | A.OFFVIS_ITS ---
Intake Vital Signs 10/19/23 07:51 Height 5 ft 6 in Weight 239 lb BMI 38.6 Pulse 68 Pulse Source Pulse Oximeter Pulse Oximetry (%) 96 Oxygen Delivery Method Room Air Intake Visit Reasons: 4-5 weeks 7:30am ok per [facility] Intake Note: Patient presents for follow up. Allergies No Known Allergies Allergy (Verified 10/19/23 07:51) Medication List - Last Reconciled 10/19/23 by DAVID Bhakta ambrisentan 10 mg PO DAILY apixaban (Eliquis) 5 mg PO BID aspirin 81 mg PO DAILY atorvastatin 80 mg PO DAILY blood sugar diagnostic (Contour Next Test Strips) As directed twice a day blood-glucose meter (Contour Next Meter) As directed bupropion HCl 300 mg PO DAILY carbidopa-levodopa 25-100 mg 1 tab PO TID 30 days dulaglutide (Trulicity) mg subcut empagliflozin (Jardiance) 25 mg PO DAILY furosemide 20 mg PO Q OTHER DAY gabapentin 600 mg orally; 1 in AM, 2 lunch, 2night glucagon (Glucagon Emergency Kit) 1 mg IM ONCE PRN lisinopril 2.5 mg PO DAILY mecobalamin (vitamin B12) 1,000 mcg sublingual DAILY metformin 1,000 mg PO BID metoprolol succinate ER 100 mg PO DAILY multivitamin 1 tab PO DAILY HPI HPI Comments History of Present Illness Details 58-yr-old male presents for f/u visit, a ccompanied by his . Pt denies any significant interval medical history changes. Pt has tolerated the increase in CD-LD to TID (taking at 5am, 12pm, 7pm). However he notices it wearing off in the evening. Generally, he does better in the am and worse in the evening. Tremor is less. More prone to eating w/ a spoon or bowl. Not as many episodes of hand jerking- notices if moving toothbrush from one hand to the other. He is still having issues crossing thresholds. He feels he is moving better. His legs can feel heavy, more so on the left. He did have a few falls- usually if turning quickly. He is still shuffling, but he is trying to be more conscious to worm picker his feet. He may feel worried that he may get hurt. notes he continues to have cognitive difficulties- some bradyphrenia. [facility] Medical History (Updated 08/15/23 @ 18:03 by DAVID Bhakta) Hay fever Tubular adenoma of colon Pulmonary emboli Low back pain HLD (hyperlipidemia) DVT (deep venous thrombosis) Diabetes mellitus Intermittent claudication Surgical History History of carpal tunnel release History of surgery Hx of colonoscopy Family History Mother Diabetes mellitus, type II Kidney failure Father Lung cancer Social History Household Members: Spouse Alcohol intake: former Patient Tobacco Use Status: Former Tobacco user Quit Date: 2020 Tobacco use type: Cigar Current occupational status: unemployed 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 BUE FFM- decreased, more so on left BUE LEONA- poor. RLE- no rest or postural tremor noted today. BUE tone, R > L BLE knee braced, BLE reduced tone Foot taps- BLE bradykinesia Slow to stand, decreased arm swing, short steps, marked varus w/ knees braced w/ low floor clearance, more so on right. Pleasant affect Assessment & Plan Assessment & Plan (1) Movement disorder: Comment: Asymmetric tremor, rigidity, bradykinesia, gait changes, mild visual hallucinations. 2022-mxai scan. 2022 brain MRI mild chronic microangiopathic changes. Code(s): G25.9 - Extrapyramidal and movement disorder, unspecified (2) Peripheral neuropathy: Code(s): G62.9 - Polyneuropathy, unspecified (3) Altered gait: Code(s): R26.9 - Unspecified abnormalities of gait and mobility (4) Tremor: Code(s): R25.1 - Tremor, unspecified Plan Patient continues to have positive effect from levodopa tx, which does support a movement disorder or dopaminergic neurodegenerative process, however in the setting of a negative DaTSCAN, advised that we will need to monitor for progression, stabilization, or regression of symptoms. Stop CD-LD 25-100mg from 1 tab t.i.d. Trial CD-LD ER 25-100mg 1 tab qid- in hopes this further reduces his movement symptoms and allows for increased mobility. Trial weighted silverware, anti-slip dishes, lipped plates. At this point, patient may proceed with scheduling his total knee replacement. Follow-up with Dr. Tucker scheduled. ? Continue to monitor, pt's asymmetric tremor, bradykinesia, rigidity, altered gait, freezing, and visual hallucinations in the setting of BUE carpal tunnel syndrome and BLE mild axonal sensory-motor peripheral neuropathy and LLE L4-S1 mild chronic neuropathic changes and negative Maxi scan w/o no known risk factors for secondary parkinsonism. ? Pt is advised to abstain from work through f/u here, as pt continues to be at increased risk for injury and falls d/t his work requirements. ? Follow-up as scheduled or sooner as needed. Medications: New carbidopa-levodopa 25-100 mg ER 1 tab PO QID 30 days 120 tabs 3RF Discontinued carbidopa-levodopa 25-100 mg take w/ a cracker Discontinued Reason: Doctor's Order 1 tab PO TID 30 days 90 tabs 3RF Coding Level of Care Code Est Pt Level 4 (00021) Diagnoses Movement disorder G25.9 Peripheral neuropathy G62.9 Altered gait R26.9 Tremor R25.1
[2023-10-19 07:51] VITALS: PULSE 68; O2SAT 96; BMI 38.6
== END 2023-10-19 08:49 | disposition home or self-care (01) ==
PROVIDERS: PCP Internal Medicine; Visit Provider Nurse Practitioner Family
DX: G25.9 Extrapyramidal and movement disorder, unspecified (principal); G62.9 Polyneuropathy, unspecified; R26.9 Unspecified abnormalities of gait and mobility
CPT/HCPCS: 99214

== ENCOUNTER → 2023-10-19 07:40 | Outpatient (BNVA) | payer OTHER, SELFPAY | PROVIDERS: PCP Internal Medicine; Visit Provider Nurse Practitioner Family ==

== ENCOUNTER 2023-10-27 16:02 | Outpatient (AMB) | payer OTHER, SELFPAY ==
--- NOTE | 2023-10-27 16:03 | MHC.OFFVIS ---
Intake Intake Visit Reasons: Follow up-CONF Intake Note: Patient presents for follow up. no issues besides what the provider knows already Allergies No Known Allergies Allergy (Verified 10/27/23 16:03) Medication List - Last Reconciled 10/27/23 by DAVID Bhakta ambrisentan 10 mg PO DAILY apixaban (Eliquis) 5 mg PO BID aspirin 81 mg PO DAILY atorvastatin 80 mg PO DAILY blood sugar diagnostic (Contour Next Test Strips) As directed twice a day blood-glucose meter (Contour Next Meter) As directed bupropion HCl 300 mg PO DAILY carbidopa-levodopa 25-100 mg ER 1 tab PO QID 30 days dulaglutide (Trulicity) mg subcut empagliflozin (Jardiance) 25 mg PO DAILY furosemide 20 mg PO Q OTHER DAY gabapentin 600 mg orally; 1 in AM, 2 lunch, 2night glucagon (Glucagon Emergency Kit) 1 mg IM ONCE PRN lisinopril 2.5 mg PO DAILY mecobalamin (vitamin B12) 1,000 mcg sublingual DAILY metformin 1,000 mg PO BID metoprolol succinate ER 100 mg PO DAILY multivitamin 1 tab PO DAILY HPI HPI Comments History of Present Illness Details 58-yr-old male presents for f/u televideo visit via [employer]. Accompanied by his , Gisselle. Pt has tolerated the increase/change in CD-LD 25-100mg tid to CD-LD ER 25-100mg QID (taking at 5am, 11pm, 4:30pm, and 10pm). He takes Gabapentin 600mg tid- for pain and pins/needles/burning sensation in feet, which has resolved, but he does still have pain in the feet. Taking more Tylenol for the knee, feet, and headaches. The headaches are mostly squeezing/thumping moderate headache a/w photophobia, blurry vision, difficulty concentrating, does not want to talk with anyone.. The headache comes on quickly, lasts 1-5hrs. This occurs 3-4 nights per week around 7-8pm. These started in the beginning of September. Denies preceding medication changes, infections. He denies h/o headaches or migraine. Since the last visit, He feels something do feel better. He is noticing his hand writing is getting smaller. He is not feeling any wearing off, internally. He can have right sided shakiness.The tremor is increased if anxious. He can feel irritable, grasping the arm of a chair- like he wants to punch something, but more just to get the energy out- in the evening around 6-7pm. He has had 1 fall- d/t turning. His legs are still sticking to the floor. He is trying to take walks- walks his dogs x's 20 minutes- any more than this makes him SOB. 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 He is not noticing hallucinations. Today, pt notes that a year ago, he had started to feel like someone was standing over his shoulder reading behind him- but no one was there. He is still having fragmented sleep. No sleep walking. Does still talk in his sleep. His eczema is more bothersome. He did see ortho PT- was given stretches to do. [facility] Medical History (Updated 10/27/23 @ 17:24 by DAVID Bhakta) Hay fever Tubular adenoma of colon Pulmonary emboli Low back pain HLD (hyperlipidemia) DVT (deep venous thrombosis) Diabetes mellitus Intermittent claudication Surgical History History of carpal tunnel release History of surgery Hx of colonoscopy Family History Mother Diabetes mellitus, type II Kidney failure Father Lung cancer Social History Household Members: Spouse Alcohol intake: former Patient Tobacco Use Status: Former Tobacco user Quit Date: 2020 Tobacco use type: Cigar Current occupational status: unemployed 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 Pleasant affect Assessment & Plan Assessment & Plan (1) Falls: Code(s): W19.XXXA - Unspecified fall, initial encounter (2) New onset headache: Code(s): R51.9 - Headache, unspecified (3) Movement disorder: Comment: Asymmetric tremor, rigidity, bradykinesia, gait changes, mild visual hallucinations. 2022-carlee scan. 2022 brain MRI mild chronic microangiopathic changes. Code(s): G25.9 - Extrapyramidal and movement disorder, unspecified (4) Peripheral neuropathy: Code(s): G62.9 - Polyneuropathy, unspecified (5) Altered gait: Code(s): R26.9 - Unspecified abnormalities of gait and mobility (6) Tremor: Code(s): R25.1 - Tremor, unspecified (7) Migraine without aura: Code(s): G43.009 - Migraine without aura, not intractable, without status migrainosus Plan For new onset headache c/w migraine w/o aura: Head CT w/o contrast d/t mx recent falls. 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 Headache tx contraindications: all triptans d/t pulmonary HTN. Patient continues to have positive effect from levodopa tx, which does support a movement disorder or dopaminergic neurodegenerative process, however in the setting of a negative DaTSCAN, advised that we will need to monitor for progression, stabilization, or regression of symptoms. Continue CD-LD ER 25-100mg 1 tab qid- in hopes this further reduces his movement symptoms and allows for increased mobility. Try CD-LD IR 25-100mg 1/2-1 tab at onset of irritability in the evening- monitor for improvement/worsening to assess if this is levodopa responsive. If no effect, consider optimizing his depression/anxiety regimen. Trial weighted silverware, anti-slip dishes, lipped plates. Left total knee replacement as scheduled. Follow-up with Dr. Tucker scheduled. ? Continue to monitor, pt's asymmetric tremor, bradykinesia, rigidity, altered gait, freezing, and visual hallucinations in the setting of BUE carpal tunnel syndrome and BLE mild axonal sensory-motor peripheral neuropathy and LLE L4-S1 mild chronic neuropathic changes and negative Carlee scan w/o no known risk factors for secondary parkinsonism. ? Pt is advised to abstain from work through f/u here, as pt continues to be at increased risk for injury and falls d/t his work requirements. ? Follow-up as scheduled or sooner as needed. Orders: Orders CT head/brain wo IV con 10/27/23 R51.9 - Headache, unspecified, W19.XXXA - Unspecified fall, initial encounter Medications: New ubrogepant (Ubrelvy) take at onset of migraine, may repeat in 2hrs (may take w/ Tylenol) 50 - 100 mg (0.5 - 1 x 100 mg) PO ONCE 30 days PRN 16 tabs 3RF migraine headache Telehealth Telehealth Location of provider rendering services: practice address Location of patient: address on file Patient Identification confirmed using: Name, : Yes Telehealth method: video Patient verbally consented to treatment: Yes Patient verbally consented to billing insurance company: Yes Patient informed of any privacy concerns related to visit: Yes Minutes spent on Phone/Video with Pt.: 30 Coding Level of Care Code Tele Est Pt Level 4 (46625) Diagnoses Falls W19.XXXA New onset headache R51.9 Movement disorder G25.9 Peripheral neuropathy G62.9 Altered gait R26.9 Tremor R25.1 Migraine without aura G43.009
== END 2023-11-04 11:41 | disposition home or self-care (01) ==
LOC: HO.HSMS 16:02
PROVIDERS: PCP Internal Medicine; Visit Provider Nurse Practitioner Family
DX: G25.9 Extrapyramidal and movement disorder, unspecified (principal); R29.6 Repeated falls; R51.9 Headache, unspecified; G62.9 Polyneuropathy, unspecified; R26.9 Unspecified abnormalities of gait and mobility; R25.1 Tremor, unspecified; G43.009 Migraine without aura, not intractable, without status migrainosus
CPT/HCPCS: 99214

== ENCOUNTER → 2023-10-27 16:02 | Outpatient (BNVA) | payer OTHER, SELFPAY | PROVIDERS: PCP Internal Medicine; Visit Provider Nurse Practitioner Family ==

== ENCOUNTER 2023-11-11 07:30 | Outpatient (REF) | payer OTHER, SELFPAY ==
--- NOTE | ~2023-11-11 | CT_ITS ---
EXAMINATION: CT HEAD WITHOUT CONTRAST CLINICAL INFORMATION: 58-year-old male with headache COMPARISON: MRI from October 2022 TECHNIQUE: Contiguous axial imaging was performed from the skull base to vertex without intravenous administration of contrast. This CT examination was performed using dose optimization techniques as appropriate, variously including the following: *Automated exposure control *Adjustment of mA and/or kV according to patient size (this includes techniques or standardized protocols for targeted exams where dose is matched to indication/reason for exam; i.e. extremities or head) *Use of iterative reconstruction technique DLP: 820 mGy-cm FINDINGS: Unenhanced examination demonstrates the cortical sulci and ventricular system to be appropriate in size and morphology for the patient's age. No focal area of abnormal attenuation within the brain parenchyma is appreciated. No mass effect, midline shift, or intracranial hemorrhage is seen. No abnormal extra-axial fluid collection is noted. Orbits, mastoids air cells and paranasal sinuses appear unremarkable. CT/CT head/brain wo IV con IMPRESSION: No acute intracranial pathology.
== END 2023-11-11 07:31 | disposition home or self-care (01) ==
LOC: HO.CT 07:30
PROVIDERS: PCP Internal Medicine; Visit Provider Nurse Practitioner Family
DX: R51.9 Headache, unspecified (principal); Z91.81 History of falling
CPT/HCPCS: 70450

== ENCOUNTER 2024-03-13 07:43 | Outpatient (AMB) | payer OTHER, SELFPAY ==
[2024-03-13 07:47] VITALS: PULSE 84; O2SAT 96; BMI 38.7
--- NOTE | 2024-03-13 07:47 | A.OFFVIS_ITS ---
Vital Signs 03/13/24 07:47 Height 5 ft 6 in Weight 240 lb BMI 38.7 Pulse 84 Pulse Source Pulse Oximeter Pulse Oximetry (%) 96 Oxygen Delivery Method Room Air Intake Visit Reasons: Follow up-CONF Intake Note: Patient presents for follow up. patient was changed form brettulicity to tracieic. Allergies No Known Allergies Allergy (Verified 03/13/24 07:50) HPI Comments Details: 58-yr-old male presents for f/u visit. Accompanied by hios . Pt had the left TKR on October 28 2023 and right TKR on January 26, 2024. Post-op pain resolved recently. The week later, pt did develop gastroentiritis- required ER eval for IVF and pain management. He is still doing PT- they also gave him some PD type exercises. He notes that he has difficulty with balancing- like he is not perceiving the balance balls well. He can feel like he is walking on clouds. He does still have pain in his feet. He is shuffling. At times can have freezing episodes. Tapping his legs help. He has been cleared to walk w/o device. Sometimes he has difficulty swallowing - like his jaw will freeze. Sometimes his hand/arm will feel frozen- for instance, he will go to pickling grader a coffee from a counter and the arm just locked. He can feel like the fan is on. He is not noticing the cat- since they changed the area he usually sits in (now chair is in front of a wall, instead of in front of doors). He is talking in his sleep. Feels mood is worse. Current regimen: CD-LD ER 25-100mg QID (taking at 5am, 11pm, 4:30pm, and 10pm) and CD-LD IR 25- 100mg at 4:30pm- helped w/ off time/cognitive s/s- worsening concentration, ability to follow conversation. Gabapentin 600mg tid- for pain and pins/needles/burning sensation in feet, which has resolved, but he does still have pain in the feet. He continues to have resp s/s r/t his pulmonary HTN. Has not needed to take prn furosemide in the last month. The headaches are mostly squeezing/thumping moderate headache a/w photophobia, blurry vision, difficulty concentrating, does not want to talk with anyone. Triggers- stress/anxiety. The headache comes on quickly, lasts 3 hours or more w/o tx. This occurs 3-4 afternoons per week around 7-8pm. The Ubrelvy was very effective. [facility] Medical History (Updated 10/27/23 @ 17:24 by DAVID Bhakta) Hay fever Tubular adenoma of colon Pulmonary emboli Low back pain HLD (hyperlipidemia) DVT (deep venous thrombosis) Diabetes mellitus Intermittent claudication Surgical History H/O total knee replacement History of carpal tunnel release History of surgery Hx of colonoscopy Family History Mother Diabetes mellitus, type II Kidney failure Father Lung cancer Social History Household Members: Spouse Alcohol intake: former Patient Tobacco Use Status: Former Tobacco user Tobacco use type: Cigar Current occupational status: unemployed 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 Mild decreased expression w/ very mild facial asymmetry- improved. BUE FFM- decreased, more so on left RLE- mild postural tremor . BUE tone, R > L BLE rigidity improved. Foot taps- BLE bradykinesia Slow to stand, decreased arm swing, short steps w/ low floor clearance. BLE varus- has been markedly improved s/p BLE TKR. Pleasant affect Assessment & Plan Assessment & Plan (1) Movement disorder: Comment: Asymmetric tremor, rigidity, bradykinesia, gait changes, mild visual hallucinations. 2022-maxi scan. 2022 brain MRI mild chronic microangiopathic changes. Code(s): G25.9 - Extrapyramidal and movement disorder, unspecified Category: Medical (2) Peripheral neuropathy: Code(s): G62.9 - Polyneuropathy, unspecified Category: Medical (3) Altered gait: Code(s): R26.9 - Unspecified abnormalities of gait and mobility Category: Medical (4) Migraine without aura: Code(s): G43.009 - Migraine without aura, not intractable, without status migrainosus Category: Medical Plan Continue to monitor, pt's CD-LD responsive asymmetric tremor, bradykinesia, rigidity, altered gait, freezing, and visual hallucinations in the setting of BUE carpal tunnel syndrome and BLE mild axonal sensory-motor peripheral neuropathy and LLE L4-S1 mild chronic neuropathic changes and negative Maxi scan w/o no known risk factors for secondary parkinsonism. Increase CD-LD ER 25-100mg from 1 tab QID to 1 tab 5 x's per day. Increase CD-LD IR 25-100mg from 1 tab at 4:30pm to 1 tab bid at 5am and 4:30pm. Trial weighted silverware, anti-slip dishes, lipped plates. Resume Melatonin 10-20mg q evening. Continue Gabapentin. Continue PT exercises. Consider trying local PD class at [facility]- when he completes PT. ? For migraine w/o aura: Head CT w/o contrast- normal. Continue Ubrelvy 100mg prn, as pt has had good clinical effect from use. Headache tx contraindications: all triptans d/t pulmonary HTN. ? Pt is advised to abstain from work through f/u here, as pt continues to be at increased risk for injury and falls d/t his work requirements.. ? Follow-up as scheduled or sooner as needed. Coding Level of Care Code Est Pt Level 4 (59351) Complex EM visit Add On G2211 Diagnoses Movement disorder G25.9 Peripheral neuropathy G62.9 Altered gait R26.9 Migraine without aura G43.009
== END 2024-03-13 09:12 | disposition home or self-care (01) ==
PROVIDERS: PCP Internal Medicine; Visit Provider Nurse Practitioner Family
DX: G25.9 Extrapyramidal and movement disorder, unspecified (principal); G62.9 Polyneuropathy, unspecified; R26.9 Unspecified abnormalities of gait and mobility; G43.009 Migraine without aura, not intractable, without status migrainosus
CPT/HCPCS: 99214; G2211

== ENCOUNTER → 2024-03-13 07:43 | Outpatient (BNVA) | payer OTHER, SELFPAY | PROVIDERS: PCP Internal Medicine; Visit Provider Nurse Practitioner Family ==

== ENCOUNTER 2024-06-28 08:45 | Outpatient (AMB) | payer OTHER, SELFPAY ==
[2024-06-28 09:07] VITALS: BP 100/64; PULSE 80; O2SAT 95; BMI 38.7
--- NOTE | 2024-06-28 09:07 | MHC.OFFVIS ---
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 Accompanied by: Spouse Allergies No Known Allergies Allergy (Verified 06/28/24 09:10) Medication List - Last Reconciled 06/28/24 by DAVID Bhakta ambrisentan 10 mg PO DAILY apixaban (Eliquis) 5 mg PO BID aspirin 81 mg PO DAILY atorvastatin 80 mg PO DAILY blood sugar diagnostic (Contour Next Test Strips) As directed twice a day blood-glucose meter (Contour Next Meter) As directed bupropion HCl XL 300 mg PO DAILY carbidopa-levodopa 25-100 mg 1 tab PO BID 90 days carbidopa-levodopa 25-100 mg ER 1 tab orally 5 x's per day; 90 days dulaglutide (Trulicity) mg subcut empagliflozin (Jardiance) 25 mg PO DAILY furosemide 20 mg PO Q OTHER DAY gabapentin 600 mg orally; 1 in AM, 2 lunch, 2night glucagon (Glucagon Emergency Kit) 1 mg IM ONCE PRN lisinopril 2.5 mg PO DAILY mecobalamin (vitamin B12) 1,000 mcg sublingual DAILY metformin 1,000 mg PO BID metoprolol succinate ER 100 mg PO DAILY multivitamin 1 tab PO DAILY ubrogepant (Ubrelvy) 50 - 100 mg (0.5 - 1 x 100 mg) PO ONCE PRN 30 days HPI Comments Details: 58-yr-old male presents for f/u visit. Accompanied by his . He has recovered well from his Bilateral TKR. He is still f/b pulomonoloy- per the Pulmonology PA, pt does not currently qualify for supplemental O2. Advsied not to be concenred unless SpO2 is < 88% and does not climb back to low 90?s. Pt/ have questions about ability to return to work, applying for disability, his handicap parking placard is about to . He has started the movement exercise program at the [facility]. He states that is going well, but notes that he does have to think about moving his feet from the left to the right and be cautious with balance/coordination. He feels this is also serves as an informal support group. Voice is soft. Speech sometimes hard to get the words out. Takes a moment to really to finish some sentence Needing some help w/ ADLs- needs help with drying his back and with his lower body. Using a zipper belt, slip on boots/sneakers. Has RUE and RLE tremor. BUE arms feel stiff and heavy. Has difficulty w/ dexterity. Using a spoon to eat most meals. Items are still flying out of his hands randomly ? no pattern. He is shuffling and needs to take rests when walking. Feet are sticking more. Uses the cart at the grocery store which helps. He is falling over into the smith or furniture almost daily. He has had 3-4 full falls to the ground. Feet seem to be ?sticking? more. He is shuffling more. Still has BLE pain and feeling like they are walking on clouds. Examples of falls: Fell in the porch when letting the dog in and in the kitchen another day Dropped a pill and fell over while trying to pick it up Fell backwards in the kitchen while bringing his dishes to the sink Fell in the driveway after [employer] class. Bounced off a doorway which shook him up a bit Cognitive issues, confusion, and concentration issues. Forgetting start and stop? Mood is changing. Now more prone to crying, easily becoming frustrated/irritable. No patience with himself. He has a therapist- sees him every 3 weeks. He previously did a partial day program and he learned good coping skills. Sleeping varies. Has sleep talking. No sleep movements. Now sleeping w/ adjustable bed w/ HOB elevated. Was given Trazodone for sleep, however he did not take it, as he notes that he has a fear of going to sleep- that he will not wake up or his will find him not breathing. Recenetly noticing more migraines. Ubrelvy does work for the migraines The headaches are mostly squeezing/thumping moderate headache a/w photophobia, blurry vision, difficulty concentrating, does not want to talk with anyone. Triggers- stress/anxiety. The headache comes on quickly, lasts 3 hours or more w/o tx. This occurs 3-4 afternoons per week around 7-8pm. The Ubrelvy was very effective. [facility] Medical History (Updated 07/02/24 @ 16:18 by DAVID Bhakta) Hay fever Tubular adenoma of colon Pulmonary emboli Low back pain HLD (hyperlipidemia) DVT (deep venous thrombosis) Diabetes mellitus Intermittent claudication Surgical History H/O total knee replacement History of carpal tunnel release History of surgery Hx of colonoscopy Family History Mother Diabetes mellitus, type II Kidney failure Father Lung cancer Social History Household Members: Spouse Alcohol intake: former Patient Tobacco Use Status: Former Tobacco user Tobacco use type: Cigar Current occupational status: unemployed 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 Mild decreased expression w/ very mild facial asymmetry- improved. RUE rest tremor. RLE- intermittent mild tremor. BUE tone, R > L BUE FFM- bradykinesia Foot taps- BLE bradykinesia Slow to stand, decreased arm swing, short steps w/ low floor clearance. BLE varus- markedly improved s/p BLE TKR. Pleasant affect Assessment & Plan Assessment & Plan (1) Parkinson's disease without dyskinesia: Comment: Asymmetric tremor, rigidity, bradykinesia, gait changes, mild visual hallucinations. 2022 DaTscan- negative. 2022 brain MRI mild chronic microangiopathic changes. Code(s): G20.A1 - Parkinson's disease without dyskinesia, without mention of fluctuations Category: Medical (2) Peripheral neuropathy: Code(s): G62.9 - Polyneuropathy, unspecified Category: Medical (3) Altered gait: Code(s): R26.9 - Unspecified abnormalities of gait and mobility Category: Medical (4) Migraine without aura: Code(s): G43.009 - Migraine without aura, not intractable, without status migrainosus Category: Medical (5) Recurrent falls: Code(s): R29.6 - Repeated falls Category: Medical (6) Cognitive changes: Code(s): R41.89 - Other symptoms and signs involving cognitive functions and awareness Category: Medical Plan Movement disorder diagnosis specified to Parkinson's disease w/o dyskinesia. Pt has Levodopa responsive asymmetric movement s/s of tremor, bradykinesia, rigidity, altered gait, and freezing. As well as non-motor s/s of hallucinations, parasomnias, cognitive changes, mood changes. Pt does also have BUE carpal tunnel syndrome and BLE mild axonal sensory-motor peripheral neuropathy and LLE L4-S1 mild chronic neuropathic changes, which likely are also contributing to pt's gait and fall difficulties. Note h/o negative Maxi scan does not exclude a diagnosis of Parkinson's or a Parkinsonian syndrome. Pt has no known risk factors for secondary parkinsonism. Increase CD-LD ER 25-100mg from 1 tab 5 x's per day to 1 tab 4 times day and 2 tabs 1 x per day (1-2-1-1-1). Continue CD-LD IR 25-100mg up to 1 tab bid at 5am and 4:30pm. Start Rasagiline 0.5mg orally daily x's 1 week then 1mg daily- in hopes this reduces rigidity and bradykinesia. Trial weighted silverware, anti-slip dishes, lipped plates. Melatonin 10-20mg q evening. Continue Gabapentin. Continue home PT exercises and local [facility] movement class. Pt advised to undergo neuro-psych evaluation to assess patient's cognitive strengths/weaknesses and extent of cognitive difficulties. ? For migraine w/o aura: Head CT w/o contrast- normal. Continue Ubrelvy 100mg prn, as pt has had good clinical effect from use. Headache tx contraindications: all triptans d/t pulmonary HTN. ? Pt is advised to abstain from work through f/u here, as pt has had increased cognitive/mood difficulties and continues to be at increased risk for injury and falls d/t his work requirements. Will complete handicap placard form. Advised that office usually will request pt's records and would contact us if they needed additional documentation. ? Will follow-up upon review of above and patient to follow-up in clinic in 3-4 months or sooner prn. Orders: Referrals Neuropsychiatry Referral R41.89 - Other symptoms and signs involving cognitive functions and awareness Medications: New rasagiline 1/2 tab po daily x's 1 week, then 1 tab qd orally daily; 30 days 30 tabs 3RF Changed From carbidopa-levodopa 25-100 mg ER 1 tab orally 5 x's per day; 90 days 450 tabs 1RF To carbidopa-levodopa 25-100 mg ER 1 tab orally 5 x's per day; may take 1 extra per day at 9am 90 days 540 tabs 1RF Coding Level of Care Code Est Pt Level 4 (24526) Complex EM visit Add On G2211 Diagnoses Parkinson's disease without dyskinesia G20.A1 Peripheral neuropathy G62.9 Altered gait R26.9 Migraine without aura G43.009 Recurrent falls R29.6 Cognitive changes R41.89
== END 2024-06-28 10:15 | disposition home or self-care (01) ==
PROVIDERS: PCP Internal Medicine; Visit Provider Nurse Practitioner Family
DX: G20.A1 Parkinson's disease without dyskinesia, without mention of fluctuations (principal); G62.9 Polyneuropathy, unspecified; R26.9 Unspecified abnormalities of gait and mobility; G43.009 Migraine without aura, not intractable, without status migrainosus; R29.6 Repeated falls; R41.89 Other symptoms and signs involving cognitive functions and awareness
CPT/HCPCS: 99214

== ENCOUNTER 2024-11-23 08:48 | Outpatient (AMB) | payer OTHER, MEDICARE, BC, SELFPAY ==
--- NOTE | 2024-11-23 08:55 | MHC.OFFVIS ---
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 Accompanied by: Spouse Allergies No Known Allergies Allergy (Verified 11/23/24 08:57) PFSH Medical History (Updated 07/02/24 @ 16:18 by DAVID Bhakta) Hay fever Tubular adenoma of colon Pulmonary emboli Low back pain HLD (hyperlipidemia) DVT (deep venous thrombosis) Diabetes mellitus Intermittent claudication Surgical History H/O total knee replacement History of carpal tunnel release History of surgery Hx of colonoscopy Family History Mother Diabetes mellitus, type II Kidney failure Father Lung cancer Social History Household Members: Spouse Alcohol intake: former Patient Tobacco Use Status: Former Tobacco user Tobacco use type: Cigar Current occupational status: unemployed 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
[2024-11-23 08:57] VITALS: BP 110/60; PULSE 64; O2SAT 95; BMI 36.8
--- NOTE | 2024-11-23 09:03 | A.OFFVIS_ITS ---
Vital Signs 11/23/24 08:57 Height 5 ft 6 in Weight 228 lb BMI 36.8 BP 110/60 Blood Pressure Location Rt brachial Position Sitting Pulse 64 Pulse Source Pulse Oximeter Pulse Oximetry (%) 95 Oxygen Delivery Method Room Air Intake Visit Reasons: Follow up Allergies No Known Allergies Allergy (Verified 11/23/24 08:57) Medication List - Last Reconciled 11/23/24 by DAVID Bhakta ambrisentan 10 mg PO DAILY apixaban (Eliquis) 5 mg PO BID aspirin 81 mg PO DAILY atorvastatin 80 mg PO DAILY blood sugar diagnostic (Contour Next Test Strips) As directed twice a day blood-glucose meter (Contour Next Meter) As directed bupropion HCl XL 300 mg PO DAILY carbidopa-levodopa 25-100 mg 1 tab PO BID 90 days carbidopa-levodopa 25-100 mg ER 1 tab orally 5 x's per day; may take 1 extra per day at 9am 90 days dulaglutide (Trulicity) mg subcut empagliflozin (Jardiance) 25 mg PO DAILY furosemide 20 mg PO Q OTHER DAY gabapentin 600 mg orally; 1 in AM, 2 lunch, 2night glucagon (Glucagon Emergency Kit) 1 mg IM ONCE PRN lisinopril 2.5 mg PO DAILY mecobalamin (vitamin B12) 1,000 mcg sublingual DAILY metformin 1,000 mg PO BID metoprolol succinate ER 100 mg PO DAILY multivitamin 1 tab PO DAILY rasagiline 1 mg PO DAILY 30 days ubrogepant (Ubrelvy) 50 - 100 mg (0.5 - 1 x 100 mg) PO ONCE PRN 30 days HPI Comments Details: 59-yr-old male presents for f/u visit of movement disorder. Accompanied by his . Pt recently started ozempic, and has begun to have weight loss. States he is eating, however may miss a meal during the day, but usually good about eating dinner. He has recovered well from his Bilateral TKR. He is still f/b pulomonoly- per the Pulmonology PA, pt does not currently qualify for supplemental O2. Advsied not to be concenred unless SpO2 is < 88% and does not climb back to low 90?s. Patient's primary concerns: He is feeling off, having shoulder and arm pain. He started rasagiline, but has not noticed much difference. Needing some help w/ ADLs- needs help with drying his back and with his lower body. Using a zipper belt, slip on boots/sneakers. Has RUE and RLE tremor. Continues to have BUE pain, shoulder pain, arm heaviness. Shaking more- especially with stress. His gait is shuffling, and feet are sticking to the floor. Uses the cart at the grocery store which helps. He states his neuropathy symptoms are very well controlled. He is falling more often. More off-balance. He states the [place] movement classes are helping this. Now doing a cycling class weekly as well. His cognition seems worse- having more difficulty putting things together. Neuro-psych testing is still pending [facility]- in [place]. He is prone to talk about past experiences more so than day to day activities. He has had vivid dreams- the other night- he had a dream where he was lost in his old school and woke up at anxious- his dog woke him up. He can have more mood swings, irritable more so in the evening. Recently noticing more migraines. The headaches now are frontal than bilateral. The headaches are almost daily. Ubrelvy is still helpful, but sometimes needs to take 2 tabs. The headaches are mostly squeezing/thumping moderate headache a/w photophobia, blurry vision, difficulty concentrating, does not want to talk with anyone. Triggers- stress/anxiety. The headache comes on quickly, lasts 4 hours or more w/o tx. [facility] Medical History (Updated 11/23/24 @ 18:14 by DAVID Bhakta) Hay fever Tubular adenoma of colon Pulmonary emboli Low back pain HLD (hyperlipidemia) DVT (deep venous thrombosis) Diabetes mellitus Intermittent claudication Surgical History H/O total knee replacement History of carpal tunnel release History of surgery Hx of colonoscopy Family History Mother Diabetes mellitus, type II Kidney failure Father Lung cancer Social History Household Members: Spouse Alcohol intake: former Patient Tobacco Use Status: Former Tobacco user Tobacco use type: Cigar Current occupational status: unemployed 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 Less noticeable short-term memory lapses today. Mild decreased expression w/ very mild facial asymmetry- improved. RUE rest tremor. RLE- intermittent mild tremor. BUE tone, R > L. performing right elbow range of motion elicited right shoulder pain BUE FFM- bradykinesia Foot taps- BLE bradykinesia Slow to stand, slight stoop, decreased arm swing, short steps w/ low floor clearance. BLE varus- markedly improved s/p BLE TKR. Pleasant affect Assessment & Plan Assessment & Plan (1) Parkinson's disease without dyskinesia: Comment: Asymmetric tremor, rigidity, bradykinesia, gait changes, mild visual hallucinations. 2022 DaTscan- negative. 2022 brain MRI mild chronic micro angiopathic changes. Code(s): G20.A1 - Parkinson's disease without dyskinesia, without mention of fluctuations Category: Medical Qualifiers: Fluctuating manifestations: with fluctuating manifestations Qualified Code(s): G20.A2 - Parkinson's disease without dyskinesia, with fluctuations (2) Peripheral neuropathy: Code(s): G62.9 - Polyneuropathy, unspecified Category: Medical Qualifiers: Peripheral neuropathy type: polyneuropathy, unspecified Qualified Code(s): G62.9 - Polyneuropathy, unspecified (3) Altered gait: Code(s): R26.9 - Unspecified abnormalities of gait and mobility Category: Medical (4) Migraine without aura: Code(s): G43.009 - Migraine without aura, not intractable, without status migrainosus Category: Medical Qualifiers: Status migrainosus presence: without status migrainosus Intractability: not intractable Qualified Code(s): G43.009 - Migraine without aura, not intractable, without status migrainosus (5) Recurrent falls: Code(s): R29.6 - Repeated falls Category: Medical (6) Cognitive changes: Code(s): R41.89 - Other symptoms and signs involving cognitive functions and awareness Category: Medical Plan Parkinson's disease w/o dyskinesia. Pt has Levodopa responsive asymmetric movement s/s of tremor, bradykinesia, rigidity, altered gait, and freezing. As well as non-motor s/s of hallucinations, parasomnias, cognitive changes, mood changes. Pt does also have BUE carpal tunnel syndrome and BLE mild axonal sensory-motor peripheral neuropathy and LLE L4-S1 mild chronic neuropathic changes, which likely are also contributing to pt's gait and fall difficulties. Note h/o negative Maxi scan does not exclude a diagnosis of Parkinson's or a Parkinsonian syndrome. Pt has no known risk factors for secondary parkinsonism. Check XR bilateral shoulder Increase CD-LD ER 25-100mg from 1 tab 4 times day and 2 tabs 1 x per day (1-2-1-1-1) to 2-1-2-1-2 (8 tabs per day). Continue CD-LD IR 25-100mg up to 1 tab bid at 5am and 4:30pm. Discontinue Rasagiline 1mg- ineffective after greater than 3 months. Melatonin 10-20mg q evening. Continue Gabapentin. Continue home PT exercises and local [employer] movement class. Neuro-psych evaluation as ordered- to assess patient's cognitive strengths/weaknesses and extent of cognitive difficulties. Future considerations: Amantadine ? For acute migraine w/o aura treatment: Head CT w/o contrast- normal. Continue Ubrelvy 100mg prn, as pt has had good clinical effect from use. Headache tx contraindications: all triptans d/t pulmonary HTN. For migraine w/o or prevention: Start Ajovy 225mg/1.5ml autoinjector- injection 225mg subcutaneously once a month. Potential adverse effects of Ajovy include but are not limited to injection site reactions. Pt advised Ajovy will likely require insurance prior authorization. Ajovy should be refrigerated until 1 hr prior use. Continue metoprolol- primarily for HTN. Continue bupropion- primarily for depression. Migraine prevention contraindications: Topiramate due to risk for worsening cognition and neuropathy symptoms. Depakote due to risk for worsening tremor and causing weight gain in setting of diabetes. Amitriptyline/all TCAs due to pulmonary hypertension and CAD. ? Pt is advised to abstain from work through f/u here, as pt has had increased co gnitive/mood difficulties and continues to be at increased risk for injury and falls d/t his work requirements. ? Will follow-up upon review of above and patient to follow-up in clinic in 6 months or sooner prn. Orders: Orders XR Shoulder Rolan min 2V Today M25.511 - Pain in right shoulder, M25.512 - Pain in left shoulder, R29.6 - Repeated falls Medications: New fremanezumab-vfrm (Ajovy) administer 225mg sc q month 225 mg (1.5 mL) subcut ONCE 30 days 1.5 mL 6RF Changed From carbidopa-levodopa 25-100 mg ER 1 tab orally 5 x's per day; may take 1 extra per day at 9am 90 days 540 tabs 1RF To carbidopa-levodopa 25-100 mg ER as directed orally 2-1-2-1-2 tabs throughout the day 90 days 720 tabs 1RF Discontinued rasagiline Discontinued Reason: Doctor's Order 1 mg PO DAILY 30 days 30 tabs 6RF Coding Level of Care Code Est Pt Level 4 (58480) Complex EM visit Add On G2211 Diagnoses Parkinson's disease without dyskinesia, with fluctuating manifestations G20.A2 Fluctuating manifestations: with fluctuating manifestations Peripheral polyneuropathy G62.9 Peripheral neuropathy type: polyneuropathy, unspecified Altered gait R26.9 Migraine without aura and without status migrainosus, not intractable G43.009 Status migrainosus presence: without status migrainosus Intractability: not intractable Recurrent falls R29.6 Cognitive changes R41.89
== END 2024-11-23 10:04 | disposition home or self-care (01) ==
PROVIDERS: PCP Internal Medicine; Visit Provider Nurse Practitioner Family
DX: G20.A2 Parkinson's disease without dyskinesia, with fluctuations (principal); G62.9 Polyneuropathy, unspecified; R26.9 Unspecified abnormalities of gait and mobility; G43.009 Migraine without aura, not intractable, without status migrainosus; R29.6 Repeated falls; R41.89 Other symptoms and signs involving cognitive functions and awareness
CPT/HCPCS: 99214

== ENCOUNTER 2024-11-23 08:48 | Outpatient (REF) | payer OTHER, MEDICARE, BC, SELFPAY ==
--- NOTE | ~2024-11-23 | XR_ITS ---
EXAMINATION: XR SHOULDER, BILATERAL CLINICAL INFORMATION: R29.6 - Repeated falls COMPARISON: None available. TECHNIQUE: AP external rotation, Grashey, scapular Y, and axillary views of the both shoulders. FINDINGS: RIGHT SHOULDER: Normal bone mineralization. No fracture, dislocation, or suspicious bone lesion. Normal alignment. The glenohumeral joint demonstrate mild to moderate degenerative arthritis. The AC joint demonstrates mild to moderate spurring. There is a type II acromion. No undersurface spurring. The subacromial space is mild to moderately narrowed. Remainder of the soft tissue and bony structures appear normal. Sternal hardware noted. LEFT SHOULDER: Normal bone mineralization. No fracture, dislocation, or suspicious bone lesion. Normal alignment. The glenohumeral joint demonstrate mild to moderate degenerative arthritis. The AC joint demonstrates mild to moderate spurring. There is a type II acromion. No undersurface spurring. The subacromial space is mild to moderately narrowed. Remainder of the soft tissue and bony structures appear normal. Sternal hardware noted. XR/XR Shoulder Rolan min 2V IMPRESSION: 1. No acute bony abnormality of either shoulder. 2. Mild to moderate degenerative arthritis in the glenohumeral joints and AC joints bilaterally. 3. Mild to moderate narrowing of the RIGHT subacromial space, suggesting underlying rotator cuff pathology. 4. No significant narrowing of the LEFT subacromial space. Electronically signed by: Art Brito MD 11/24/2024 12:57 PM EDT
== END 2024-11-23 08:49 | disposition home or self-care (01) ==
LOC: HO.XRAY 08:48
PROVIDERS: PCP Internal Medicine; Visit Provider Nurse Practitioner Family
DX: R29.6 Repeated falls (principal); M25.511 Pain in right shoulder; M25.512 Pain in left shoulder
CPT/HCPCS: 73030

== ENCOUNTER → 2024-11-23 16:24 | Outpatient (BNV) | payer OTHER, MEDICARE, BC, SELFPAY | PROVIDERS: PCP Internal Medicine; Visit Provider Radiology Diagnostic Radiology | DX: M19.011 Primary osteoarthritis, right shoulder (principal); M19.012 Primary osteoarthritis, left shoulder | CPT/HCPCS: 73030 ==